=== PATIENT | male | born 1995 | race Hispanic/Latino ===

== ENCOUNTER 2022-09-22 17:11 | Emergency (ER) | payer SELFPAY ==
[2022-09-22 17:11] VITALS: BP 121/81; PULSE 78; RESP 16; TEMP 36.5; O2SAT 97
[2022-09-22 21:06] VITALS: BMI 30.9
--- NOTE | 2022-09-22 21:17 | CT_ITS ---
INDICATION: left flank pain EXAMINATION: CT ABDOMEN AND PELVIS WITHOUT CONTRAST TECHNIQUE: Helically acquired images were obtained of the abdomen and pelvis without IV contrast. 2-D reconstructions reviewed. A radiation dose optimization technique was used for this scan. IV Contrast dosage and agent: None. Oral contrast: None. COMPARISON: None. FINDINGS: Evaluation slightly limited by motion degradation. LOWER CHEST: No acute findings within the imaged lung bases. Heart size within normal limits. LIVER: Homogeneous. No discrete mass. GALLBLADDER AND BILIARY TREE: No calcified gallstones identified. No gallbladder wall edema demonstrated. No significant biliary ductal dilation. PANCREAS: No discrete mass or peripancreatic edema. SPLEEN: Normal size without discrete mass. ADRENAL GLANDS: Unremarkable. KIDNEYS AND URETERS: Normal renal size and position. No perinephric edema or hydronephrosis. No discrete mass. No tract stones identified. PERITONEUM: No peritoneal free air or significant free fluid. No other fluid collection. RETROPERITONEUM: No retroperitoneal mass or pathologic fluid collection. BOWEL: No evidence of acute appendicitis. No abnormal stomach or bowel distension. No focal inflammatory change. LYMPH NODES: No enlarged mesenteric or retroperitoneal lymph nodes. VESSELS: No acute findings. No abdominal aortic aneurysm. URINARY BLADDER: Under distended with possible circumferential wall thickening. REPRODUCTIVE ORGANS: No pelvic masses. ABDOMINAL WALL: No acute findings or significant hernia defect. BONES: Intact with no suspicious osseous lesion. CT/Abdomen/Pelvis without Cont IMPRESSION: Equivocal urinary bladder wall thickening versus underdistention. Correlate clinically and with urinalysis for possible cystitis. Electronically Signed: José Blanco MD at 22:29 EST ,
[2022-09-22] MEDS: 0.9% Normal Saline 1,000 ML 150 ML IV (21:38)
[2022-09-22] MEDS: Ketorolac 30 MG/ML Syringe IV (21:39)
[2022-09-22 21:54] LABS: Absolute Neutrophil Count 5.1 X10^3/uL (2.0-7.7); Bacteria 0 SEEN /hpf (None Seen); Basophil# 0.03 X10^3/uL; Basophil% 0.4 % (0-1); Color, Urine Yellow (Yellow); Eosinophil# 0.25 X10^3/uL; Eosinophils% 3.1 % (0-5); Glucose, Dipstick Normal (Normal); Hematocrit 47.3 % (40-54); Ketone-Dipstick 5 mg/dl (Negative); Leukocyte Esterase-Dipstick Negative /ul (Negative); Lymphocyte % 24.6 % (19-41); Mean Corp Hgb Conc 33.8 g/dL (32-36); Mean Corpuscular Hgb 29.5 pg (27.0-32.0); Mean Corpuscular Volume 87.3 fL (80-94); Mean Platelet Vol. 10.4 fl (6.2-12.0); Monocyte# 0.71 X10^3/uL; Monocyte% 8.7 % (0-10); NRBC Flagged by Analyzer 0 % (0-5); Neutrophil % 62.7 % (47-70); Nitrite-Dipstick Negative (Negative); Occult Blood-Urine Negative /ul (Negative); Platelet Count 322 K/mm3 (150-450); Protein-Dipstick 15 mg/dl (Negative); RBC Distribution Width CV 13.2 % (11.6-14.6); RBC Distribution Width SD 41.6 fl (35.1-43.9); Red Blood Cells-Urine 0 SEEN /hpf (0-5); Red Blood Count 5.42 M/mm3 (4.6-6.2); Specific Gravity, Urine 1.025 (1.002-1.030); Urine Bilirubin Dipstick Negative (Negative); Urine Clarity Clear (Clear); Urine Urobilinogen 1 mg/dl (Normal); White Blood Cells 0 SEEN /hpf (0-5); White Blood Count 8.1 K/mm3 (4.4-11.0)
[2022-09-22 22:05] LABS: Mucous, Urine 2+ /hpf (<or=2+); Squamous Epithelial Cells - UA 0-5 SEEN /hpf (0-5)
[2022-09-22 22:13] LABS: Anion Gap 7 (5-15); BUN 16 mg/dL (7-18); BUN/Creat Ratio 21.4 RATIO (10-20); Calcium,Total 9.2 mg/dL (8.5-10.1); Chloride 105 mmol/L (98-107); Creatinine, Serum 0.75 mg/dL (0.70-1.30); EST Glomerular Filtration Rate 132 mL/min (>60); Est Glom Filt Rate - Afr Amer 160 mL/min (>60); Glucose 122 mg/dL (74-106); Potassium 3.9 mmol/L (3.5-5.1); Sodium Level 140 mmol/L (136-145)
--- NOTE | 2022-09-22 22:48 | EX.ED.DYSGE1 ---
HPI History of Present Illness Chief Complaint: Back Detail of Chief Complaint: Flank pain Informant: patient Onset/Context/Timing Onset: - (More than 1 year) Narrative Narrative: Patient presents with left flank pain has been bothering him for more than 1 year. Patient speaks Cymraes and customer experience intern iPad is used. Patient reports back pain that is not necessarily reproducible, however states when the pain is bad he will push on his abdomen and his abdomen hurts. He points to the left lower quadrant. He has had no fever or chills. No nausea or vomiting. No dysuria or hematuria. No penile lesions or discharge. He denies diarrhea or constipation. He states he has not been taking anything for pain. When asked what changed that brought him to the emergency room tonight, he states that his work is slow right now and he finally had time to come be evaluated. PFSH PFSH Medical History no medical history no medical history Home Medications naproxen 500 mg tablet (Naprosyn) 500 mg PO BID PRN pain #20 tabs 09/22/22 [Rx Last Taken Unknown] Allergy/AdvReac Type Severity Reaction Status Date / Time No Known Allergies Allergy Verified 09/22/22 17:15 Surgical History no surgical history no surgical history Social History Smoking Status: Never smoker ROS ROS ED Constitutional Constitutional ED: Denies chills or fever(s) Eyes Eyes: Denies change in vision or discharge from eye(s) ENT ENT ED: Denies discharge from eye(s), rhinorrhea or sore throat Cardiovascular Cardiovascular: Denies chest pain or palpitations Respiratory/Chest Respiratory/Chest: Denies cough or dyspnea Gastrointestinal Gastrointestinal: Reports abdominal pain; Denies diarrhea, nausea or vomiting Genitourinary Genitourinary ED: Reports other Details: Urinary urgency ; Denies difficulty urinating or dysuria Musculoskeletal Musculoskeletal: Reports back pain; Denies extremity pain Integumentary Denies Abrasions or rash Neurologic Neurologic: Denies headache(s) or weakness Psychiatric Psychiatric: Denies anxiety or depression Allergic/Immunologic Allergic/Immunologic ED: Denies lip swelling or urticaria EXAM Physical Exam Const Vital Signs: 09/22/22 17:11 Temperature 97.7 F L Temperature Source Temporal Pulse Rate 78 Respiratory Rate 16 Blood Pressure 121/81 H Blood Pressure Mean 94 Pulse Ox 97 Oxygen Delivery Method Room Air Positive well nourished and well developed General Appearance ED: well developed HEENT Reports normocephalic and head/scalp atraumatic Eyes PERRL and EOMs intact bilaterally Neck supple Chest Wall inspection of chest normal and palpation of chest normal Resp normal respiratory effort and clear to auscultation bilaterally Cardio regular rate and regular rhythm GI normal to inspection, nondistended, normoactive bowel sounds and non-tender Palpation: soft Back/Spine no CVA tenderness Thoracic Spine / Upper Back: Negative for thoracic spinal tenderness Lumbar Spine / Lower Back: Negative for lumbar spinal tenderness Extremity normal to inspection Neuro oriented x3 and no sensory deficits noted Sensorium / Orientation: alert Motor Exam: strength 5/5 throughout Psych mental status grossly normal Skin no rashes or lesions noted MDM MDM MDM Narrative Medical decision making narrative: Patient is given IV fluids and Toradol for pain. Lab work obtained to evaluate for leukocytosis, anemia, electrolyte derangement. Urinalysis obtained given his urinary frequency. CT flank ordered given his flank pain. Lab Data Attestation: I reviewed the patient's lab results. Labs: Laboratory Results - last 24 hr 09/22/22 09/22/22 09/22/22 21:40 21:40 21:40 WBC 8.1 RBC 5.42 Hgb 16.0 Hct 47.3 MCV 87.3 MCH 29.5 MCHC 33.8 RDW Std Deviation 41.6 RDW Coeff of Angelo 13.2 Plt Count 322 MPV 10.4 Immature Gran % (Auto) 0.500 Neut % (Auto) 62.7 Lymph % (Auto) 24.6 [place] % (Auto) 8.7 Eos % (Auto) 3.1 Baso % (Auto) 0.4 Absolute Neuts (auto) 5.1 Absolute Lymphs (auto) 2.00 Nucleated RBC % 0 Sodium 140 Potassium 3.9 Chloride 105 Carbon Dioxide 28.0 Anion Gap 7 BUN 16 Creatinine 0.75 Estim Creat Clear Calc 103.70 Est GFR (MDRD) Af Amer 160 Est GFR (MDRD) Non-Af 132 BUN/Creatinine Ratio 21.4 H Glucose 122 H Calcium 9.2 Urine Color Yellow Urine Clarity Clear Urine pH 5.0 Ur Specific [place] 1.025 Urine Protein 15 H Urine Glucose (UA) Normal Urine Ketones 5 H Urine Occult Blood Negative Urine Nitrite Negative Urine Bilirubin Negative Urine Urobilinogen 1 H Ur Leukocyte Esterase Negative Urine RBC 0 SEEN Urine WBC 0 SEEN Ur Squamous Epith Cells 0-5 SEEN Urine Bacteria 0 SEEN Urine Mucus 2+ Radiography Diagnostic Testing: Clinical Impression(s) from Imaging Studies Abdomen/Pelvis CT 09/22/22 21:17 IMPRESSION: Equivocal urinary bladder wall thickening versus underdistention. Correlate clinically and with urinalysis for possible cystitis. Electronically Signed: José Blanco MD at 22:29 EST , Treatment and Re-Evaluation Narrative: CBC chemistry studies are unremarkable. Urinalysis reveals no sign of infection. CT flank reveals slight bladder wall thickening, could be secondary to underdistention. On repeat evaluation patient is resting comfortably denies any pain at this time. Test results are discussed with him through the customer experience intern. I will send a prescription for naproxen to the pharmacy for him. Return instructions are given. Discharge Plan Triage Chief Complaint: Back ED Provider: Emilie Lazaro Dx/Rx/DC Orders Clinical Impression: Flank pain Instructions: ED Flank Pain, Uncertain Cause Prescriptions: New naproxen [Naprosyn] 500 mg tablet 500 mg PO BID PRN (Reason: pain) Qty: 20 0RF Primary Care Provider: Care Physician,No Primary Referrals: Neal Freitas MD [Med Staff - [employer] Supervisor] - As Needed Care Physician,No Primary [Primary Care Provider] - Activity Restrictions/Additional Instructions: As discussed, your pain may be caused by a pinched nerve in your back that wraps around your side. Please take the pain medication as needed. Please establish a primary care doctor in the area for follow-up. Print Language: Cymraes Disposition Disposition: Home, Self Care
[2022-09-22 23:54] VITALS: BP 112/65; PULSE 72; RESP 18; O2SAT 100
== END 2022-09-22 23:58 | disposition home or self-care (01) ==
PROVIDERS: Emergency Provider Emergency Medicine; Visit Provider Emergency Medicine
DX: R10.9 Unspecified abdominal pain (principal)
CPT/HCPCS: 74176; 80048; 81001; 85025; 96361; 96374; 99283; J7030